=== PATIENT | female | born 1995 | race Caucasian/White ===

== ENCOUNTER 2017-05-29 11:55 | Observation (INO) | payer BC ==
[~2017-05-29 11:55] MED LIST: CEFAZOLIN 1 GM INJ; METOCLOPRAMIDE 10 MG INJ; ONDANSETRON 4 MG INJ
[2017-05-29] MEDS: SOD CHLORIDE 0.9% 1,000 ML IV (12:36)
[2017-05-29 12:52] LABS: ADD MAN DIFF? NO
[2017-05-29 13:00] LABS: WHITE BLOOD COUNT 18.2 10^3/ul (4.8-10.8)
[2017-05-29 13:00] LABS: BASOPHILS % 0.2 % (0.0-2.0); HEMATOCRIT 34.3 % (37.0-47.0); HEMOGLOBIN 11.9 g/dl (12.0-16.0); LYMPHOCYTES % 5.5 % (15.0-51.0); MEAN CORPUSCULAR HEMOGLOBIN 30.6 pg (29.0-33.0); MEAN CORPUSCULAR HGB CONC 34.7 g/dl (32.0-37.0); MEAN CORPUSCULAR VOLUME 88.2 fl (82.0-101.0); MONOCYTE # 0.4 10^3/ul (0.3-0.9); MONOCYTES % 2.4 % (0.0-11.0); NEUTROPHIL # 16.6 10^3/ul (1.6-7.5); NEUTROPHILS % 91.3 % (39.0-77.0); PLATELET COUNT 280 10^3/UL (140-415); RED BLOOD COUNT 3.89 10^6/ul (4.20-5.40); RED CELL DISTRIBUTION WIDTH 12.3 % (11.5-14.5)
[2017-05-29 13:09] LABS: ADD UMIC YES; UR ASCORBIC ACID NEGATIVE (NEGATIVE); UR BACTERIA FEW /HPF (NONE SEEN); UR BILIRUBIN (Dip) NEGATIVE (NEGATIVE); UR BLOOD (Dip) 3+ mg/dL (NEGATIVE); UR CLARITY CLOUDY (CLEAR); UR COLOR RED (YELLOW); UR GLUCOSE (Dip) 1+ mg/dL (NEGATIVE); UR KETONES (Dip) NEGATIVE (NEGATIVE); UR LEUKOCYTE ESTERASE (Dip) TRACE Leu/ul (NEGATIVE); UR NITRITE (Dip) NEGATIVE (NEGATIVE); UR RBC > 182 /HPF (0-5); UR SPECIFIC GRAVITY (Dip) 1.024 (1.003-1.030); UR TOTAL PROTEIN (Dip) 3+ mg/dl (NEGATIVE); UR UROBILINOGEN (Dip) NEGATIVE (NEGATIVE); UR WBC 0 /HPF (0-5)
[2017-05-29 13:20] LABS: ANION GAP 15 (8-16); BLOOD UREA NITROGEN 13 mg/dl (7-20); CALCIUM 9.7 mg/dl (8.4-10.2); CARBON DIOXIDE 24 mmol/L (21-31); CHLORIDE 102 mmol/L (97-110); CREATININE 0.64 mg/dl (0.44-1.00); GLUCOSE 96 mg/dl (70-220); POTASSIUM 3.7 mmol/L (3.5-5.1); SODIUM 137 mmol/L (135-144)
[2017-05-29] MEDS ORDERED: PROPOFOL 0 ML (17:48)
[2017-05-29] MEDS ORDERED: MIDAZOLAM 1 MG/ML 2 ML INJ (17:48)
[2017-05-29] MEDS ORDERED: FENTAnyl 50 MCG/ML VIAL (17:48)
[2017-05-29] MEDS ORDERED: METOCLOPRAMIDE 10 MG INJ IV (20:30)
[2017-05-29] MEDS ORDERED: HYDROmorphONE (0.2 MG/ML) 10ML SYG IV ×3 (20:30)
[2017-05-29] MEDS ORDERED: DIPHENHYDRAMINE 50 MG INJ IV (20:30)
[2017-05-29] MEDS ORDERED: ONDANSETRON 4 MG INJ IV (20:30)
[2017-05-29] MEDS ORDERED: MEPERIDINE 25 MG INJ IV (20:30)
[2017-05-29] MEDS ORDERED: FENTAnyl 50 MCG/ML VIAL IV ×3 (20:30)
[2017-05-29] MEDS ORDERED: OXYCODONE/ACETAMINOPHEN (5/325) TAB PO ×2 (20:30)
[2017-05-29] MEDS ORDERED: MIDAZOLAM 1 MG/ML 2 ML INJ IV (20:30)
[2017-05-29] MEDS ORDERED: PROPOFOL 20 ML ×2 (20:32→20:36)
[2017-05-29] MEDS ORDERED: MEPERIDINE 100 MG INJ (20:32)
[2017-05-29] MEDS ORDERED: NEOSTIGMINE 3 MG/3 ML SYRINGE (20:36)
[2017-05-29] MEDS ORDERED: ROCURONIUM 50 MG INJ (20:36)
[2017-05-29] MEDS ORDERED: SUCCINYLCHOLINE CHLORIDE 100 MG/5 ML SYG IV (20:36)
[2017-05-29] MEDS ORDERED: GLYCOPYRROLATE 0.4 MG INJ (20:36)
[2017-05-29] MEDS ORDERED: CEFAZOLIN 1 GM INJ (21:19)
[2017-05-29] MEDS ORDERED: SUGAMMADEX SODIUM 200 MG/2 ML VIAL IV (21:27)
[2017-05-29] MEDS ORDERED: IBUPROFEN 200 MG TAB PO (22:30)
[2017-05-30] MEDS ORDERED: ROCURONIUM 50 MG INJ (07:00)
[2017-05-30] MEDS ORDERED: CEFAZOLIN 1 GM INJ (07:00)
[2017-05-30] MEDS ORDERED: SUCCINYLCHOLINE CHLORIDE 100 MG/5 ML SYG IV (07:00)
[2017-05-30] MEDS: SOD CHLORIDE 0.9% 1,000 ML IV (12:25)
[2017-05-30] MEDS ORDERED: PROCHLORPERAZINE 10 MG INJ IV (19:00)
[2017-05-30] MEDS ORDERED: DIPHENHYDRAMINE 50 MG INJ IV (19:00)
[2017-05-30] MEDS ORDERED: ONDANSETRON 4 MG INJ IV (19:00)
[2017-05-30] MEDS ORDERED: MEPERIDINE 25 MG INJ IV (19:00)
[2017-05-30] MEDS ORDERED: PROPOFOL 20 ML (19:27)
[2017-05-30] MEDS ORDERED: FENTAnyl 50 MCG/ML VIAL (19:27)
[2017-05-30] MEDS ORDERED: LIDOCAINE 2% (SDV) 5 ML INJ (19:27)
[2017-05-30] MEDS ORDERED: MIDAZOLAM 1 MG/ML 2 ML INJ (19:27)
[2017-05-30] MEDS ORDERED: PHENYLephrine (100 MCG/ML) 5ML SYG (19:40)
[2017-05-30] MEDS ORDERED: ONDANSETRON 4 MG INJ (19:40)
[2017-05-30] MEDS ORDERED: DEXAMETHASONE 4 MG/ML 1 ML INJ (19:40)
[2017-05-30] MEDS ORDERED: SUGAMMADEX SODIUM 200 MG/2 ML VIAL IV (20:12)
[2017-05-30] MEDS: FENTAnyl 50 MCG/ML VIAL IV ×2 (20:53→21:07)
[2017-05-30] MEDS: HYDROmorphONE (0.2 MG/ML) 10ML SYG IV ×2 (21:01→21:12)
[2017-05-30] MEDS ORDERED: OXYCODONE/ACETAMINOPHEN (5/325) TAB PO (22:40)
[2017-05-30] MEDS ORDERED: HYDROmorphONE 0.5 MG/0.5 ML SYG IV ×3 (22:40)
[2017-05-30] MEDS: OXYCODONE/ACETAMINOPHEN (5/325) TAB PO (23:00)
[2017-05-30] MEDS: ONDANSETRON 4 MG INJ IV (23:01)
[2017-05-31] MEDS: SOD CHLORIDE 0.9% 1,000 ML IV ×2 (05:06→14:36)
[2017-05-31] MEDS: OXYCODONE/ACETAMINOPHEN (5/325) TAB PO ×2 (08:07→15:33)
[2017-05-31 14:01] LABS: ADD MAN DIFF? NO
[2017-05-31 14:07] LABS: WHITE BLOOD COUNT 8.1 10^3/ul (4.8-10.8)
[2017-05-31 14:07] LABS: BASOPHILS % 0.1 % (0.0-2.0); EOSINOPHILS % 0.1 % (0.0-7.0); HEMATOCRIT 25.4 % (37.0-47.0); HEMOGLOBIN 8.7 g/dl (12.0-16.0); LYMPHOCYTES # 2.3 10^3/ul (0.8-2.9); LYMPHOCYTES % 28.8 % (15.0-51.0); MEAN CORPUSCULAR HEMOGLOBIN 30.2 pg (29.0-33.0); MEAN CORPUSCULAR HGB CONC 34.3 g/dl (32.0-37.0); MEAN CORPUSCULAR VOLUME 88.2 fl (82.0-101.0); MEAN PLATELET VOLUME 10.1 fl (7.4-10.4); MONOCYTE # 0.7 10^3/ul (0.3-0.9); MONOCYTES % 8.9 % (0.0-11.0); NEUTROPHILS % 61.9 % (39.0-77.0); PLATELET COUNT 213 10^3/UL (140-415); RED BLOOD COUNT 2.88 10^6/ul (4.20-5.40); RED CELL DISTRIBUTION WIDTH 11.9 % (11.5-14.5)
== END 2017-05-31 17:20 | disposition home or self-care (01) ==
LOC: E/R 11:55 → SDS 17:39 → MS1 23:09
DX: O03.4 Incomplete spontaneous abortion without complication (principal); D72.829 Elevated white blood cell count, unspecified
CPT/HCPCS: 36415; 76801; 76817; 80048; 81001; 84702; 84703; 85025; 86900; 86901; 99285-25